=== PATIENT | female | born 1970 | race Two or more races ===

== ENCOUNTER 2020-01-05 15:39 | Emergency (ER) | payer OTHER ==
[~2020-01-05] VITALS: Ht 165.1 cm; Wt 88.3 kg
[2020-01-05 15:50] VITALS: BP 132/70
[2020-01-05] MEDS ORDERED: ALBUTEROL/IPRATROPIUM 2.5MG/0.5MG, 3 ML NPPB ONE (16:30)
[2020-01-05] MEDS ORDERED: ALBUTEROL SULFATE 2.5 MG/3 ML ONE (16:45)
[2020-01-05] MEDS ORDERED: DEXAMETHASONE 4 MG TABLET ONE (17:57)
[2020-01-05] MEDS ORDERED: DEXAMETHASONE 4 MG TABLET PO ONE (18:00)
== END 2020-01-05 18:28 | disposition home or self-care (01) ==
LOC: ED 18:15
DX: J98.01 Acute bronchospasm (principal); B34.9 Viral infection, unspecified; R07.89 Other chest pain; R94.31 Abnormal electrocardiogram [ECG] [EKG]; M79.10 Myalgia, unspecified site; F17.290 Nicotine dependence, other tobacco product, uncomplicated
CPT/HCPCS: 71046; 93005; 94640; 99283